=== PATIENT | female | born 1990 | race Caucasian/White ===

== ENCOUNTER 2021-08-22 23:01 | Emergency (ER) | payer OTHER ==
[~2021-08-22 23:01] MED LIST: NAPROXEN500 MG PO; NORCO 5-325 TA1 EACH PO; ZOFRAN4 MG PO
[2021-08-22 23:32] LABS: BASOPHIL 0.5 % (0-2); EOSINOPHIL 3.1 % (0-5); HGB 12.7 g/dl (12.5-16.0); LYMPHOCYTE 38.8 % (15-48); MCHC 32.6 g/dL (32.0-36.0); MCV 95.1 fL (78.0-100.0); MONOCYTE 6.9 % (0-12); MPV 11.3 fL (6.0-9.5); NEUTROPHIL 50.6 % (41-80); NRBC 0; PLT 148 K/uL (150-400); RDW 12.6 % (11.5-14.0); WBC 7.7 K/uL (4.0-10.5)
[2021-08-22 23:55] LABS: BILIRUBIN NEGATIVE (NEGATIVE); BLOOD NEGATIVE Ery/uL (NEGATIVE); CLARITY CLEAR (CLEAR); COLOR YELLOW (YELLOW); GLUCOSE (U) NORMAL (NORMAL); LEUKOCYTES NEGATIVE Leu/uL (NEGATIVE); NITRITE NEGATIVE (NEGATIVE); PROTEIN NEGATIVE (NEGATIVE); SPECIFIC GRAVITY 1.025 (1.001-1.030); UROBILINOGEN 0.2 mg/dL (0.2-1.0)
[2021-08-23 00:16] LABS: BILIRUBIN - TOTAL 0.4 mg/dL (0.2-1.0); BUN/CREAT RATIO (CALC) 20.7 RATIO; CREATININE 0.82 mg/dL (0.51-0.95); GLOBULIN (CALCULATION) 3.4 g/dL; POTASSIUM 4.4 mmol/L (3.5-5.1); TOTAL PROTEIN 7.4 g/dL (6.4-8.2)
[2021-08-23] MEDS ORDERED: PHENERGAN25 M1 PO (01:21)
[2021-08-23] MEDS ORDERED: SENNA PLUS 8.61 EACH PO (01:21)
[2021-08-23] MEDS ORDERED: MIRALAX 238GM238 GM PO (01:21)
[2021-08-23] MEDS ORDERED: ONDANSETRON ODT4 MG PO (01:21)
== END 2021-08-23 01:37 | disposition home or self-care (01) ==
LOC: FER 23:01
PROVIDERS: Internal Medicine
DX: R10.31 Right lower quadrant pain (principal); N83.202 Unspecified ovarian cyst, left side; K59.00 Constipation, unspecified; Z88.0 Allergy status to penicillin; F17.210 Nicotine dependence, cigarettes, uncomplicated
CPT/HCPCS: 36415; 80053; 81003; 83690; 84145; 85025; J2405